=== PATIENT | male | born 1985 | race Caucasian/White ===

== ENCOUNTER 2017-05-04 17:47 | Emergency (ER) | payer OTHER ==
[~2017-05-04] VITALS: Ht 180.3 cm; Wt 110.1 kg
[~2017-05-04 17:47] MED LIST: ACET-1256 PO
[2017-05-04 17:52] VITALS: TEMP 36.3; Ht 180.3 cm; Wt 110.1 kg
[2017-05-04] MEDS ORDERED: VAREPAK PO (18:10)
[2017-05-04 19:10] LABS: BENZODIAZEPINE, URINE NEG (NEG); COCAINE,URINE NEG (NEG); PHENCYCLIDINE, URINE NEG (NEG)
--- NOTE | 2017-05-04 19:28 | EMERGENCY ROOM VISIT NOTE ---
ED Visit Note First contact with patient: 17:58 CHIEF COMPLAINT: "I need a drug test" HISTORY OF PRESENT ILLNESS: This 32-year-old male patient presents to the emergency department in order to get a drug test. The patient states his told him this evening that she thinks he is doing drugs. The patient states that he came home from work today after not having drank any fluids with dry and chapped lips. The patient states his repeatedly asked him this evening if he was on drugs, and finally he got sick of the questioning, so told her he will go to the emergency department to have a drug test. The patient denies any symptoms at this time. The patient denies drug use. REVIEW OF SYSTEMS: A 6-system review of systems was performed with positives and pertinent negatives listed in the history of present illness. All other systems were reviewed and are negative. ALLERGIES: Bactrim MEDICATIONS: albuterol, Chantix PMH: Asthma SOCIAL HISTORY: The patient lives locally with his family. He denies drug or alcohol use. The patient states he quit smoking 2 weeks ago with the help of Chantix. PHYSICAL EXAM: VITALS: Vitals are noted on the nurse's note and reviewed by myself. Vital signs stable. GENERAL: 32-year-old male, in no acute distress, nondiaphoretic, well-developed well-nourished. SKIN: Capillary reflex less than 2 seconds. HEENT: Normocephalic. PERRLA. EOMI. Nares patent. Mucous membranes moist. Neck is supple without nuchal rigidity. HEART: Regular rate and rhythm without murmurs gallops or rubs. LUNGS: Clear to auscultation bilaterally without wheezes, rales or rhonchi. No retractions or accessory muscle use. MUSCULOSKELETAL: No gross musculoskeletal defects. No pedal edema. No calf tenderness. NEURO: Patient was alert and oriented to person place and time. Normal sensation to light and sharp touch. Deep tendon reflexes 2+ throughout. No focal neurological deficits. EMERGENCY DEPARTMENT COURSE: She was seen and evaluated as above. I discussed the patient that insurance may not cover the cost of the drug test in the emergency department. The patient states that fine and he wishes to proceed with the test. Urine test was ordered and was negative for illicit drugs. The patient was discharged home in good condition. DIFFERENTIAL DIAGNOSIS: Drug use, benzodiazepine use DIAGNOSIS: Desire for drug test DISCHARGE INSTRUCTIONS & TREATMENT: You were seen in the emergency department today for for a drug test. Results of your testing were negative. You were given a copy of your drug testing results to take home with you. As discussed, your health insurance may not cover the cost of a drug test in the ED. You should contact your insurance company for any discrepancies or problems related to having this test performed. Please return to the emergency department for actual drug use, drug overdose, trouble breathing, chest pain, or other concerning symptoms. Please follow-up with your PCP in 2-3 days at your regular appointment regarding wheezing noted on exam. Problem List Medical Problems: (1) Asthma Status: Chronic (2) ASTHMA, UNSPECIFIED Status: Chronic (3) right ankle surgery Status: Resolved Surgical Problems: (1) History of appendectomy Status: Resolved Current/Historical Medications Scheduled Varenicline Tartrate (Chantix), 1 TAB PO UD Allergies Coded Allergies: Sulfa Drugs (Verified Allergy, Unknown, 04/02/15) Sulfamethoxazole (Verified Allergy, Unknown, 04/02/15) Sulfamethoxazole w/Trimethoprim (Verified Allergy, Unknown, RASH, 04/02/15) Trimethoprim (Verified Allergy, Unknown, 04/02/15) Vital Signs Date Time Temp Pulse Resp B/P (MAP) Pulse Ox O2 Delivery O2 Flow Rate FiO2 05/04/17 19:38 59 16 145/83 98 05/04/17 17:52 36.3 59 16 145/83 98 Room Air Laboratory Results Test 05/04/17 18:33 Urine Opiates Screen NEG (NEG) Urine Methadone, Qualitative NEG (NEG) Urine Barbiturates NEG (NEG) Urine Phencyclidine (PCP) Level NEG (NEG) Ur Amphetamine/Methamphetamine NEG (NEG) MDMA (Ecstasy) Screen NEG (NEG) Urine Benzodiazepines Screen NEG (NEG) Urine Cocaine Metabolite NEG (NEG) Urine Marijuana (THC) NEG (NEG) Departure Information Impression Primary Impression: Encounter for blood-drug test Dispostion Home / Self-Care Condition GOOD Referrals No Doctor, Assigned (PCP) Patient Instructions MDMA Drug Screen Urine, My [facility] Additional Instructions You were seen in the emergency department today for for a drug test. Results of your testing were negative. You were given a copy of your drug testing results to take home with you. As discussed, your health insurance may not cover the cost of a drug test in the ED. You should contact your insurance company for any discrepancies or problems related to having this test performed. Please return to the emergency department for actual drug use, drug overdose, trouble breathing, chest pain, or other concerning symptoms. Please follow-up with your PCP in 2-3 days at your regular appointment regarding wheezing noted on exam.
[2017-05-04 19:38] VITALS: BP 145/83; PULSE 59; O2SAT 98
== END 2017-05-04 19:38 | disposition home or self-care (01) ==
LOC: C.EDB 17:49 → C.EDD 19:38
DX: Z02.83 Encounter for blood-alcohol and blood-drug test (principal); Z87.891 Personal history of nicotine dependence

== ENCOUNTER 2021-09-26 12:50 | Inpatient (IN) ==
--- NOTE | 2021-09-26 13:17 | Emergency Department Note ---
History of Present Illness General Chief complaint: Shortness of Breath/Dyspnea Stated complaint: COVID + 09/18, SOB, CHEST TIGHTNESS, DIZZY Time Seen by Provider: 09/26/21 13:07 History of Present Illness Maximum Pain Intensity: 0 36-year-old male presents emergency department with a 8-day history of cough cold congestion symptoms, he is unvaccinated, reportedly tested positive for Cov id in the past 8 days. He states that at times he has been coughing clear to green sputum. Patient denies any hemoptysis denies pleuritic chest pain denies nausea vomiting diarrhea. States muscle aches. There are no other mitigating or alleviating factors; States decreased PO intake for the past 3 days due to illness Home Medications Medication Instructions Recorded Confirmed Type meclizine 25 mg tablet 25 mg PO BID PRN #20 tab 09/14/21 09/26/21 Rx albuterol sulfate 90 mcg/actuation 1 inh INHALATION Q6H PRN #6.7 g 09/26/21 09/26/21 Rx aerosol inhaler Allergies Allergy/AdvReac Type Severity Reaction Status Date / Time Bactrim Allergy Unknown RASH Verified 04/02/15 14:59 Sulfa (Sulfonamide Allergy Unknown Verified 09/14/21 11:55 Antibiotics) sulfamethoxazole Allergy Unknown Verified 09/14/21 11:55 trimethoprim Allergy Unknown Verified 09/14/21 11:55 Past Med/Surg History Social History Smoking Status: Never smoker Second Hand Exposure: No; Hx Alcohol Use: Yes Hx Substance Use: Yes Last Used Substance Other:: Many years ago Preferred Language: Citizen Of The [place] Communication Ability: Effective 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 Nursing 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 Required: No Beliefs That Will Affect Care: None marital status: Current Living Situation: Spouse and Family Other Information That Helps Us Care for You: No Feels Safe at Home: Yes Safety Concerns: Feels Safe At This Time Assistive Devices: None Review of Systems A total of 10 systems reviewed and were otherwise negative Constitutional: + body aches Respiratory: + cough and + sputum production Cardiovascular: + lightheadedness Physical Exam Vital Signs Vital Signs - 24 hr 09/26/21 12:56 09/26/21 14:58 09/26/21 15:00 Temperature 37.4 C Temperature Source Temporal Artery Scan Pulse Rate 101 H 90 102 H Pulse Rate [Apical] Pulse Rate from SpO2 Sensor 90 92 H Respiratory Rate 18 18 21 Respiratory Effort / Characteristics Non-Labored Respiratory Depth Normal Respiratory Pattern Blood Pressure 97/67 L Blood Pressure [Right Arm] Blood Pressure Mean 77 Blood Pressure Mean [Right Arm] Pulse Oximetry 94 94 93 Oxygen Delivery Method Room Air Sepsis Recent Fever Within 48 Hours No Sepsis New/Unexplained Change in Mental Status No Sepsis Action Taken by Nursing No Action Required 09/26/21 15:01 09/26/21 15:04 09/26/21 15:10 Temperature Temperature Source Pulse Rate 88 86 Pulse Rate [Apical] 89 Pulse Rate from SpO2 Sensor 91 H Respiratory Rate 22 22 13 Respiratory Effort / Characteristics Non-Labored Respiratory Depth Normal Respiratory Pattern Tachypnea Blood Pressure Blood Pressure [Right Arm] 98/62 L Blood Pressure Mean Blood Pressure Mean [Right Arm] 74 Pulse Oximetry 94 94 91 Oxygen Delivery Method Room Air Room Air Sepsis Recent Fever Within 48 Hours Sepsis New/Unexplained Change in Mental Status Sepsis Action Taken by Nursing 09/26/21 15:20 09/26/21 15:30 09/26/21 15:40 Temperature Temperature Source Pulse Rate 82 83 84 Pulse Rate [Apical] Pulse Rate from SpO2 Sensor 82 83 Respiratory Rate 22 14 19 Respiratory Effort / Characteristics Respiratory Depth Respiratory Pattern Blood Pressure Blood Pressure [Right Arm] Blood Pressure Mean Blood Pressure Mean [Right Arm] Pulse Oximetry 94 96 Oxygen Delivery Method Sepsis Recent Fever Within 48 Hours Sepsis New/Unexplained Change in Mental Status Sepsis Action Taken by Nursing 09/26/21 15:50 09/26/21 16:00 09/26/21 16:10 Temperature Temperature Source Pulse Rate 88 85 87 Pulse Rate [Apical] Pulse Rate from SpO2 Sensor 86 Respiratory Rate 28 H 24 24 Respiratory Effort / Characteristics Respiratory Depth Respiratory Pattern Blood Pressure Blood Pressure [Right Arm] Blood Pressure Mean Blood Pressure Mean [Right Arm] Pulse Oximetry 94 Oxygen Delivery Method Sepsis Recent Fever Within 48 Hours Sepsis New/Unexplained Change in Mental Status Sepsis Action Taken by Nursing 09/26/21 16:20 09/26/21 16:30 09/26/21 16:40 Temperature Temperature Source Pulse Rate 90 89 89 Pulse Rate [Apical] Pulse Rate from SpO2 Sensor 90 Respiratory Rate 11 L 19 25 H Respiratory Effort / Characteristics Respiratory Depth Respiratory Pattern Blood Pressure Blood Pressure [Right Arm] Blood Pressure Mean Blood Pressure Mean [Right Arm] Pulse Oximetry 94 Oxygen Delivery Method Sepsis Recent Fever Within 48 Hours Sepsis New/Unexplained Change in Mental Status Sepsis Action Taken by Nursing 09/26/21 16:50 09/26/21 17:00 09/26/21 17:10 Temperature Temperature Source Pulse Rate 90 87 92 H Pulse Rate [Apical] Pulse Rate from SpO2 Sensor 88 Respiratory Rate 13 21 6 L Respiratory Effort / Characteristics Respiratory Depth Respiratory Pattern Blood Pressure Blood Pressure [Right Arm] Blood Pressure Mean Blood Pressure Mean [Right Arm] Pulse Oximetry 97 Oxygen Delivery Method Sepsis Recent Fever Within 48 Hours Sepsis New/Unexplained Change in Mental Status Sepsis Action Taken by Nursing 09/26/21 17:30 09/26/21 17:40 09/26/21 18:03 Temperature Temperature Source Pulse Rate 87 91 H Pulse Rate [Apical] Pulse Rate from SpO2 Sensor 87 86 Respiratory Rate 22 20 Respiratory Effort / Characteristics Respiratory Depth Respiratory Pattern Blood Pressure Blood Pressure [Right Arm] Blood Pressure Mean Blood Pressure Mean [Right Arm] Pulse Oximetry 94 93 Oxygen Delivery Method Sepsis Recent Fever Within 48 Hours Sepsis New/Unexplained Change in Mental Status Sepsis Action Taken by Nursing 09/26/21 18:10 09/26/21 18:21 09/26/21 18:26 Temperature Temperature Source Pulse Rate Pulse Rate [Apical] 85 Pulse Rate from SpO2 Sensor 85 88 Respiratory Rate 30 H Respiratory Effort / Characteristics Short of Breath Respiratory Depth Respiratory Pattern Tachypnea Blood Pressure Blood Pressure [Right Arm] 101/45 L Blood Pressure Mean Blood Pressure Mean [Right Arm] 63 Pulse Oximetry 92 94 93 Oxygen Delivery Method Room Air Sepsis Recent Fever Within 48 Hours Sepsis New/Unexplained Change in Mental Status Sepsis Action Taken by Nursing 09/26/21 18:30 09/26/21 18:40 09/26/21 18:50 Temperature Temperature Source Pulse Rate Pulse Rate [Apical] Pulse Rate from SpO2 Sensor 84 87 84 Respiratory Rate Respiratory Effort / Characteristics Respiratory Depth Respiratory Pattern Blood Pressure 106/55 L Blood Pressure [Right Arm] Blood Pressure Mean 72 Blood Pressure Mean [Right Arm] Pulse Oximetry 93 94 91 Oxygen Delivery Method Sepsis Recent Fever Within 48 Hours Sepsis New/Unexplained Change in Mental Status Sepsis Action Taken by Nursing 09/26/21 19:00 09/26/21 19:10 09/26/21 19:20 Temperature Temperature Source Pulse Rate Pulse Rate [Apical] Pulse Rate from SpO2 Sensor 84 83 Respiratory Rate Respiratory Effort / Characteristics Respiratory Depth Respiratory Pattern Blood Pressure 115/68 Blood Pressure [Right Arm] Blood Pressure Mean 83 Blood Pressure Mean [Right Arm] Pulse Oximetry 94 94 Oxygen Delivery Method Sepsis Recent Fever Within 48 Hours Sepsis New/Unexplained Change in Mental Status Sepsis Action Taken by Nursing 09/26/21 19:31 Temperature Temperature Source Pulse Rate Pulse Rate [Apical] Pulse Rate from SpO2 Sensor 81 Respiratory Rate Respiratory Effort / Characteristics Respiratory Depth Respiratory Pattern Blood Pressure Blood Pressure [Right Arm] Blood Pressure Mean Blood Pressure Mean [Right Arm] Pulse Oximetry 93 Oxygen Delivery Method Sepsis Recent Fever Within 48 Hours Sepsis New/Unexplained Change in Mental Status Sepsis Action Taken by Nursing VITAL SIGNS - Vital signs and nursing notes were reviewed. GENERAL -no acute distress. Communicates well with provider and answers questions appropriately. SKIN - Without rashes. HEAD - NC/AT. EYES - PERRL with EOMI bilaterally. Sclera anicteric. Palpebral conjunctiva pink and moist with no injection noted. EARS - No deformities of external structures noted on gross examination bilaterally. NOSE - Midline and without cyanosis. No epistaxis or purulent drainage noted. Septum midline without deviation or septal hematoma noted. MOUTH/OROPHARYNX - Without perioral cyanosis. NECK - Neck with FROM. Supple to palpation. LUNGS - Chest wall symmetric without accessory muscle use, intercostals retractions, or central cyanosis. Normal vesicular breath sounds CTA B/L. No wheezes, rales, or rhonchi appreciated. CARDIAC - RRR with S1/S2. No murmur, rubs, or gallops appreciated. ABDOMEN - Abdominal contour flat without pulsations or visible masses. BS normoactive all four quadrants. No tenderness, palpable masses, hepatosplenom egaly, or ascites noted. EXTREMITIES - No clubbing or peripheral cyanosis. . +5/5 strength noted in UE/LE bilaterally. NEUROLOGIC - Cranial nerves II through XII grossly intact. Sensory intact to light touch throughout. Patellar reflexes +2/4. PSYCH - A&Ox3 and cooperates fully with examiner. Pt is very pleasant and interacts well with examiner. Course Course Repeat examination the patient at 1548, patient is resting in no distress he is normotensive not tachycardic not hypoxic Administered Medications Azithromycin (Azithromycin 250 Mg Tab) 250 mg PO [facility] Stop: 10/01/21 08:59 Last Admin: 09/27/21 09:12 Dose: 250 mg Documented by: [id number] Enoxaparin Sodium (Enoxaparin Inj 40 Mg/0.4 Ml Syr) 40 mg SQ QAM BOB Stop: 10/27/21 08:59 Last Admin: 09/27/21 10:15 Dose: Not Given Documented by: [id number] Guaifenesin (Guaifenesin 600 Mg Tabcr) 600 mg PO Q12 BOB Stop: 10/27/21 08:59 Last Admin: 09/27/21 09:41 Dose: 600 mg Documented by: [id number] Ceftriaxone Sodium 2,000 mg/ (Dextrose) 70 mls @ 140 mls/hr IV DAILY BOB; Protocol Stop: 10/04/21 08:59 Last Infusion: 09/27/21 10:15 Dose: 0 mls/hr Documented by: [id number] Admin: 09/27/21 09:45 Dose: 140 mls/hr Documented by: [id number] Senna/Docusate Sodium (Docusate Sodium/Senna 50/8.6mg Tab) 1 tab PO QAM BOB Stop: 10/26/21 22:29 Last Admin: 09/27/21 09:12 Dose: 1 tab Documented by: [id number] Admin: 09/26/21 22:16 Dose: 1 tab Documented by: [id number] Discontinued Medications Albuterol (Albuterol Hfa 8 Gm Inhaler) 2 puffs INH NOW ONE Stop: 09/27/21 06:19 Last Admin: 09/27/21 08:38 Dose: Not Given Documented by: [id number] Dexamethasone (Dexamethasone 4 Mg Tab) 4 mg PO NOW ONE Stop: 09/26/21 13:42 Last Admin: 09/26/21 14:58 Dose: 4 mg Documented by: [id number] Sodium Chloride (Nss) 500 mls @ 999 mls/hr IV .Q31M STA Stop: 09/26/21 15:28 Last Infusion: 09/26/21 16:09 Dose: 0 mls/hr Documented by: [id number] Admin: 09/26/21 15:20 Dose: 999 mls/hr Documented by: [id number] Sodium Chloride (Nss 1000ml) 500 mls @ 999 mls/hr IV .Q31M ONE Stop: 09/26/21 18:56 Last Infusion: 09/26/21 18:57 Dose: 0 mls/hr Documented by: [id number] Admin: 09/26/21 18:25 Dose: 999 mls/hr Documented by: [id number] Azithromycin 500 mg/ Dextrose 255 mls @ 127.5 mls/hr IV NOW STA Stop: 09/26/21 22:13 Last Infusion: 09/26/21 23:13 Dose: 0 mls/hr Documented by: [id number] Admin: 09/26/21 20:41 Dose: 127.5 mls/hr Documented by: [id number] Dexamethasone 6 mg/ Syringe 1.5 mls @ 1 mls/min IV ONE ONE Stop: 09/26/21 20:31 Last Admin: 09/26/21 20:41 Dose: 1 mls/min Documented by: [id number] Sodium Chloride (Nss 1000ml) 1,000 mls @ 100 mls/hr IV .Q10H ONE Stop: 09/27/21 06:03 Last Infusion: 09/27/21 10:26 Dose: 0 mls/hr Documented by: [id number] Infusion: 09/26/21 23:13 Dose: 100 mls/hr Documented by: [id number] Infusion: 09/26/21 21:52 Dose: 0 mls/hr Documented by: [id number] Admin: 09/26/21 20:41 Dose: 100 mls/hr Documented by: [id number] Dexamethasone 6 mg/ Syringe 1.5 mls @ 1 mls/min IV ONE ONE Stop: 09/27/21 06:20 Last Admin: 09/27/21 09:42 Dose: 1 mls/min Documented by: [id number] Ioversol (Optiray 320 125ml) 116 ml IV ONCE ONE Stop: 09/26/21 17:22 Last Admin: 09/26/21 17:27 Dose: 116 ml Documented by: [id number] Polyethylene Glycol (Polyethylene (Miralax) 17 Gm Pack) 17 gm PO NOW STA Stop: 09/26/21 21:56 Last Admin: 09/26/21 22:16 Dose: 17 gm Documented by: [id number] Potassium Chloride (Potassium Chloride Pwd 20 Meq Pack) 40 meq PO NOW STA Stop: 09/27/21 04:39 Last Admin: 09/27/21 05:22 Dose: 40 meq Documented by: [id number] Medical Decision Making Medical Records Attestation: I reviewed the patient's medical records. Home Medications Current Medication List: was personally reviewed by me Laboratory Data Result diagrams: 09/27/21 05:58 09/27/21 06:21 Lab Results 09/26/21 09/26/21 09/26/21 Range/Units 15:22 15:22 15:22 WBC 6.32 (4.8-10.8) K/uL RBC 5.18 (4.7-6.1) M/uL Hgb 16.6 (14.0-18.0) g/dL Hct 48.1 (42-52) % MCV 92.9 (80-100) fL MCH 32.0 (25-34) pg MCHC 34.5 (32-36) g/dL RDW Std Deviation 42.3 (36.4-46.3) fL RDW Coeff of Tong 12.4 (11.5-14.5) % Plt Count 127 L (130-400) K/uL MPV 10.7 H (7.4-10.4) fL Immature Gran % (Auto) 0.3 % Neut % (Auto) 59.7 % Lymph % (Auto) 30.2 % Bee % (Auto) 9.2 % Eos % (Auto) 0.0 % Baso % (Auto) 0.6 % Neut # (Auto) 3.77 (1.4-6.5) K/uL Lymph # (Auto) 1.91 (1.2-3.4) K/uL Bee # (Auto) 0.58 (0.11-0.59) K/uL Eos # (Auto) 0.00 (0-0.5) K/uL Baso # (Auto) 0.04 (0-0.2) K/uL Immature Gran # (Auto) 0.02 (0.00-0.02) K/uL PT 10.1 (9.0-12.0) Seconds INR 1.0 (0.9-1.1) D-Dimer 960 H* (0-500) ug/L FEU Sodium 133 L (136-145) mmol/L Potassium (3.5-5.1) mmol/L Chloride 102 (98-107) mmol/L Carbon Dioxide 24 (21-32) mmol/L Anion Gap 7.0 (3-11) BUN 10 (7-18) mg/dl Creatinine 0.87 (0.6-1.4) mg/dl Est Cr Clr Drug Dosing 163.8 ml/min Est GFR ( Amer) 130.5 ml/min Est GFR (Non-Af Amer) 112.6 ml/min BUN/Creatinine Ratio 11.7 (10-20) Glucose 87 (70-99) mg/dl Calcium 8.6 (8.5-10.1) mg/dl Magnesium (1.8-2.4) mg/dl Total Bilirubin 0.6 (0.2-1) mg/dl AST (15-37) U/L ALT 121 H (12-78) Alkaline Phosphatase 67 (45-117) U/L Troponin I < 0.015 (0-0.045) ng/ml Total Protein 7.4 (6.4-8.2) gm/dl Albumin 3.0 L (3.4-5.0) gm/dl Globulin 4.4 H (2.5-4.0) gm/dl Albumin/Globulin Ratio 0.7 L (0.9-2) Lipase 140 (73-393) U/L SARS-CoV-2 (PCR) (Negative) Influenza Type A (PCR) (Neg) Influenza Type B (PCR) (Neg) RSV (RT-PCR) (Neg) 09/26/21 Range/Units 18:30 WBC (4.8-10.8) K/uL RBC (4.7-6.1) M/uL Hgb (14.0-18.0) g/dL Hct (42-52) % MCV (80-100) fL MCH (25-34) pg MCHC (32-36) g/dL RDW Std Deviation (36.4-46.3) fL RDW Coeff of Tong (11.5-14.5) % Plt Count (130-400) K/uL MPV (7.4-10.4) fL Immature Gran % (Auto) % Neut % (Auto) % Lymph % (Auto) % Bee % (Auto) % Eos % (Auto) % Baso % (Auto) % Neut # (Auto) (1.4-6.5) K/uL Lymph # (Auto) (1.2-3.4) K/uL Bee # (Auto) (0.11-0.59) K/uL Eos # (Auto) (0-0.5) K/uL Baso # (Auto) (0-0.2) K/uL Immature Gran # (Auto) (0.00-0.02) K/uL PT (9.0-12.0) Seconds INR (0.9-1.1) D-Dimer (0-500) ug/L FEU Sodium (136-145) mmol/L Potassium (3.5-5.1) mmol/L Chloride (98-107) mmol/L Carbon Dioxide (21-32) mmol/L Anion Gap (3-11) BUN (7-18) mg/dl Creatinine (0.6-1.4) mg/dl Est Cr Clr Drug Dosing ml/min Est GFR ( Amer) ml/min Est GFR (Non-Af Amer) ml/min BUN/Creatinine Ratio (10-20) Glucose (70-99) mg/dl Calcium (8.5-10.1) mg/dl Magnesium (1.8-2.4) mg/dl Total Bilirubin (0.2-1) mg/dl AST (15-37) U/L ALT (12-78) Alkaline Phosphatase (45-117) U/L Troponin I (0-0.045) ng/ml Total Protein (6.4-8.2) gm/dl Albumin (3.4-5.0) gm/dl Globulin (2.5-4.0) gm/dl Albumin/Globulin Ratio (0.9-2) Lipase (73-393) U/L SARS-CoV-2 (PCR) POSITIVE A* (Negative) Influenza Type A (PCR) Negative (Neg) Influenza Type B (PCR) Negative (Neg) RSV (RT-PCR) Negative (Neg) Imaging Data Radiologist's Impression: Chest X-Ray 09/26/21 14:07 XR chest 2V PA/lateral CLINICAL HISTORY: cough, covid positive TECHNIQUE: AP and lateral frontal radiograph of the chest was obtained. Comparison: Comparison is made to chest one view 09/20/2021 FINDINGS: No lines and tubes are seen. The cardiomediastinal silhouette is normal. Bilateral lower lung predominant airspace opacities are seen. No evidence of pleural effusion or pneumothorax. IMPRESSION: Bilateral lower lung predominant airspace opacities which may represent atelectasis, pneumonia, and/or aspiration. ACT 112: Negative or not required by law. Electronically signed by: Marty Macedo M.D. 09/26/2021 2:36 PM ECG Data Attestation: I personally reviewed and interpreted this ECG as follows: Additional Comments: EKG interpreted by me normal sinus rhythm rate of 81 normal intervals normal axis no ischemic changes no ST segment elevation or depression MDM Narrative Medical decision making differential diagnosis includes Covid pneumonia, upper respiratory tract infection, bronchitis, pneumonia; plan is to check a chest x- ray; patient's chest x-ray is consistent with Covid pneumonia, patient was being set for discharge when the nurse repeated his blood pressure was 87/40, the patient stated that he had increased shortness of breath when he was upright but was better when he was prone. On my repeat examination his heart rate is 83 his pulse oximetry is 97% he is in no respiratory distress his BP is 109/77 continues to state that he is short of breath. Patient also states he has had decreased p.o. intake in the past few days he was moved to bed B6, I will check labs and give the patient IV fluids; patient on repeat examination is resting in no distress is not hypoxic not tachycardic and not hypotensive; patient has an elevated D-dimer, CT angio was ordered. The case was turned over to DR Shaw at [address] results and disposition; Impression & Plan COVID-19, Pneumonia due to 2019 novel coronavirus Discharge Plan Visit Data Chief Complaint: Shortness of Breath/Dyspnea Stated Complaint: COVID + 12/13, SOB, CHEST TIGHTNESS, DIZZY ED Provider: Ehsan Shaw Discharge Problem: COVID-19, Pneumonia due to 2019 novel coronavirus Patient Disposition: Admitted As Inpatient Discharge Instructions Interventions: ED Discharge Assessment Last Done: 09/26/21 21:14 COVID Tier Tier I: No follow up necessary. Covid Fact Sheet / ED Discharge Instructions only Tier II: Self-Monitoring Kit, Temp 2x day/pulse ox q8 hrs. Followup call in 24 hrs. Tier III: Self-Monitoring Kit, Temp 2x day/pulse ox q4 hours, with Home Oxygen, Followup call @ 8 & 24hrs. Telehealth Followup in 48hrs ED COVID Discharge Tier: Tier II: Stable for D/C. Given a Self-Mon Kit. Call Back within 24hrs
[2021-09-26] MEDS ORDERED: dexAMETHasone 4 MG TAB PO ONE (13:41)
--- NOTE | 2021-09-26 14:38 | XRay Report ---
XR chest 2V PA/lateral CLINICAL HISTORY: cough, covid positive TECHNIQUE: AP and lateral frontal radiograph of the chest was obtained. Comparison: Comparison is made to chest one view 09/20/2021 FINDINGS: No lines and tubes are seen. The cardiomediastinal silhouette is normal. Bilateral lower lung predomi nant airspace opacities are seen. No evidence of pleural effusion or pneumothorax. IMPRESSION: Bilateral lower lung predominant airspace opacities which may represent atelectasis, pneumonia, and/o r aspiration. ACT 112: Negative or not required by law. Electronically signed by: Marty Macedo M.D. 09/26/2021 2:36 PM
[2021-09-26] MEDS ORDERED: SODIUM CHLORIDE 0.9% 500 ML IV STA (14:58)
[2021-09-26 15:33] LABS: Basophils # (auto) 0.04 K/uL (0-0.2); Basophils % (auto) 0.6 %; Hematocrit (blood only) 48.1 % (42-52); Hemoglobin 16.6 g/dL (14.0-18.0); Immature Granulocytes # (auto) 0.02 K/uL (0.00-0.02); Immature Granulocytes % (auto) 0.3 %; Lymphocytes # (auto) 1.91 K/uL (1.2-3.4); Lymphocytes % (auto) 30.2 %; Mean Corpuscular Hgb Conc 34.5 g/dL (32-36); Mean Corpuscular Volume 92.9 fL (80-100); Mean Platelet Volume 10.7 fL (7.4-10.4); Monocytes # (auto) 0.58 K/uL (0.11-0.59); Monocytes % (auto) 9.2 %; Neutrophils # (auto) 3.77 K/uL (1.4-6.5); Neutrophils % (auto) 59.7 %; Platelet Count 127 K/uL (130-400); RDW Coefficient of Variation 12.4 % (11.5-14.5); RDW Standard Deviation 42.3 fL (36.4-46.3); Red Blood Count 5.18 M/uL (4.7-6.1); White Blood Count 6.32 K/uL (4.8-10.8)
[2021-09-26 15:43] LABS: Prothrombin Time 10.1 Seconds (9.0-12.0)
[2021-09-26 15:52] LABS: D Dimer 960 ug/L FEU (0-500)
[2021-09-26 16:14] LABS: Alanine Aminotransferase 121 (12-78); Albumin Globulin Ratio 0.7 (0.9-2); Alkaline Phosphatase 67 U/L (45-117); BUN Creatinine Ratio 11.7 (10-20); Bilirubin,Total 0.6 mg/dl (0.2-1); Blood Urea Nitrogen 10 mg/dl (7-18); Calcium 8.6 mg/dl (8.5-10.1); Carbon Dioxide 24 mmol/L (21-32); Chloride 102 mmol/L (98-107); Creatinine Clr Calc Pharmacy 163.8 ml/min; Est GFR (African American) 130.5 ml/min; Est GFR (Non-African American) 112.6 ml/min; Globulin 4.4 gm/dl (2.5-4.0); Glucose 87 mg/dl (70-99); Lipase 140 U/L (73-393); Sodium 133 mmol/L (136-145); Total Protein 7.4 gm/dl (6.4-8.2); Troponin I < 0.015 ng/ml (0-0.045)
[2021-09-26] MEDS ORDERED: OPTIRAY 320 125ml IV ONE (17:21)
--- NOTE | 2021-09-26 17:58 | CT Scan Report ---
CT ANGIOGRAPHY OF THE CHEST, PULMONARY EMBOLUS PROTOCOL CLINICAL HISTORY: Shortness of breath. Evaluate for pulmonary embolus. COMPARISON STUDY: Chest radiograph September 20, 2021 and September 26, 2021. TECHNIQUE: Following IV administration of 116 mL of Optiray, helical axial images of the chest were o btained utilizing the pulmonary embolus protocol. Maximal intensity projections and sagittal and cor onal reformats were viewed on an independent 3D workstation. IV contrast was administered without co mplication. Automated exposure control was utilized for the study. A dose lowering technique was ut ilized adhering to the principles of ALARA. CT DOSE: 532.04 mGycm FINDINGS: This exam is significantly compromised by suboptimal opacification. No pulmonary emboli ar e identified although sensitivity is significantly diminished on this exam. There is no thoracic aort ic dissection. Size of the heart is normal. There is no pericardial effusion. Mildly enlarged mediast inal and bilateral hilar lymph nodes are noted. Index subcarinal lymph node measures 1.4 cm short axi s diameter. Central airways are patent. No pneumothorax or pleural effusion is noted. Extensive bilat eral lower lobe predominant airspace opacities are noted. No acute fracture or suspicious lesion is i dentified within visualized portions of the bony thorax. There is possible hepatic steatosis. IMPRESSION: 1. Exam significantly compromised by suboptimal opacification. No pulmonary emboli identified althoug h sensitivity significantly diminished on this exam. A repeat PE protocol CT might be considered. 2. Extensive multifocal airspace opacities within the lower lungs consistent with viral pneumonia. 3. Mildly enlarged mediastinal and bilateral hilar lymph nodes which are likely reactive. ACT 112: Negative or not required by law. Electronically signed by: Kurtis Cohen M.D. 09/26/2021 5:57 PM
[2021-09-26] MEDS ORDERED: SODIUM CHLORIDE 0.9% 1000ML 500 ML IV ONE (18:26)
--- NOTE | 2021-09-26 18:44 | Emergency Department Note ---
ED Visit Note I received this patient at change of shift signout from Dr. Albert. Please see his note for initial history and physical exam. The patient is a 36-year-old male who presented to the emergency department with shortness of breath. The patient is normally in a good state of health. He started having symptoms approximately 11 days ago. He was found to be positive for COVID-19 as an outpatient. He noticed that especially over the last few days his breathing has become much more labored. He was found to have Covid pneumonia on chest x-ray but because of the degree of breathing difficulty CT of the chest was also ordered. I discussed the patient's laboratory and radiographic studies with him. The CT of the chest did not show a definite pulmonary embolism but it did show extensive infiltrate secondary to COVID-19. Because of the patient's ongoing symptoms I discussed the possibility of inpatient management with him. He was agreeable this plan. I discussed his case with the on-call [facility] hospitalist group. They will evaluate the patient in the emergency department for further management and disposition. .
[2021-09-26 19:35] LABS: Influenza A virus by PCR Negative (Neg); Influenza B virus by PCR Negative (Neg); RSV by PCR Negative (Neg)
[2021-09-26 19:41] LABS: SARS CoV2 RNA(COVID-19) InHosp POSITIVE (Negative)
--- NOTE | 2021-09-26 20:00 | History & Physical Report ---
Date of Service September 26, 2021 Assessment & Plan (1) Pneumonia due to severe acute respiratory syndrome coronavirus 2 (S ARS-CoV-2): Plan: O2 sats less than 94% at the ER Superimposed bacterial infection No sepsis for now Recurrent syncopal events likely secondary to orthostasis given hypotension upon arrival at the ER. Rule out cardiac dysfunction past tobacco abuse Medical telemetry Decadron course for severe COVID-19 pneumonia Azithromycin IVF TTE RE recurrent syncope DVT prophylaxis. Lovenox subcu Full code Text document was generated using [employer] voice recognition software. It may contain grammatical or spelling errors. Kindly contact undersigned for clarification of any documentation item in question. History of Present Illness Chief Complaint: Feeling worse, Covid Primary Care Provider: Dr. Meeks History obtained from patient and records. Medical history significant for asthma, GERD, past tobacco abuse. 2 weeks ago, patient noted dizziness, lightheadedness symptoms at work. No chest pain, no S OB. Patient discharged from the ER after unremarkable work-up. Patient prescribed meclizine for possible vertigo. Patient seen at PCPs office 10 days ago on follow-up visit Patient recalled 2 unwitnessed syncopal events prior to ER visit a few days ago. Patient with fever, nausea, cough symptoms at time of PCP visit. Possible sick COVID-19 family contacts. Patient has not received COVID-19 vaccination. COVID-19 test done at PCPs office was positive. Recurrent syncopal events at home prompted return to ER last week. No incontinence, or weakness seizure episodes, or tongue biting. Poor appetite. Patient discharged from ER with negative work-up. Worsening cough symptoms with shortness of breath. Patient coughing up green sputum. Pleuritic chest pain. No wheezing as per patient. Patient returned to ER for evaluation. Initial SBP at the ER 90s. Lowest O2 sats at the ER 91 on room air. Oral Decadron given at the ER. 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 Allergies Allergy/AdvReac Type Severity Reaction Status Date / Time Bactrim Allergy Unknown RASH Verified 04/02/15 14:59 Sulfa (Sulfonamide Allergy Unknown Verified 09/14/21 11:55 Antibiotics) sulfamethoxazole Allergy Unknown Verified 09/14/21 11:55 trimethoprim Allergy Unknown Verified 09/14/21 11:55 Home Medications Medication Instructions Recorded Confirmed Type meclizine 25 mg tablet 25 mg PO BID PRN #20 tab 09/14/21 09/26/21 Rx albuterol sulfate 90 mcg/actuation 1 inh INHALATION Q6H PRN #6.7 g 09/26/21 09/26/21 Rx aerosol inhaler Past Med/Surg History Social History Smoking Status: Never smoker Second Hand Exposure: No; Hx Alcohol Use: Yes Hx Substance Use: Yes Last Used Substance Other:: Many years ago Preferred Language: Bulgarian Communication Ability: Effective Neighborhood Planner Required: No Beliefs That Will Affect Care: None Current Living Situation: Spouse and Family Other Information That Helps Us Care for You: No Feels Safe at Home: Yes Safety Concerns: Feels Safe At This Time Assistive Devices: None Review of Systems Review of Systems: As per HPI, all 10 systems reviewed, all other ROS negative Physical Exam Physical Exam: GENERAL: Uncomfortable, obese, lying semiprone on the right lateral decubitus position, minimal respiratory distress SKIN: Normal color, warm HEENT: [place] palpebral conjunctivae, no ptosis, dry buccal mucosa NECK : Supple, short neck, no tenderness CHEST : Decreased breath sounds, no tenderness HEART : RRR, no obvious murmurs ABDOMEN: Some distention, nontender EXTREMITIES : No LE swelling/tenderness, no other conspicuous deformities noted NEUROLOGIC : Coherent, no facial asymmetry, no other gross focality Results & Data Results & Data ([facility]) Vital Signs (Past 12 Hours) Vital Signs Temp Pulse Pulse Resp BP BP Pulse Ox 09/26/21 18:26 85 30 H 101/45 L 93 09/26/21 15:04 88 22 94 09/26/21 15:01 89 22 98/62 L 94 09/26/21 12:56 37.4 C 101 H 18 97/67 L 94 Laboratory Results Laboratory Results WBC 6.32 K/uL (4.8-10.8) 09/26/21 15:22 RBC 5.18 M/uL (4.7-6.1) 09/26/21 15:22 Hgb 16.6 g/dL (14.0-18.0) 09/26/21 15:22 Hct 48.1 % (42-52) 09/26/21 15: MCV 92.9 fL (80-100) 09/26/21 15: MCH 32.0 pg (25-34) 09/26/21 15: MCHC 34.5 g/dL (32-36) 09/26/21 15: RDW Std Deviation 42.3 fL (36.4-46.3) 09/26/21 15: RDW Coeff of Tong 12.4 % (11.5-14.5) 09/26/21 15: Plt Count 127 K/uL (130-400) L 09/26/21 15: MPV 10.7 fL (7.4-10.4) H 09/26/21 15: Immature Gran % (Auto) 0.3 % 09/26/21 15: Neut % (Auto) 59.7 % 09/26/21: Lymph % (Auto) 30.2 % 09/26/21 15: [place] % (Auto) 9.2 % 09/26/21 15: Eos % (Auto) 0.0 % 09/26/21 15: Baso % (Auto) 0.6 % 09/26/21: Neut # (Auto) 3.77 K/uL (1.4-6.5) 09/26/21: Lymph # (Auto) 1.91 K/uL (1.2-3.4) 09/26/21: [place] # (Auto) 0.58 K/uL (0.11-0.59) 09/26/21 15: Eos # (Auto) 0.00 K/uL (0-0.5) 09/26/21 15: Baso # (Auto) 0.04 K/uL (0-0.2) 09/26/21: Immature Gran # (Auto) 0.02 K/uL (0.00-0.02) 09/26/21 15: PT 10.1 Seconds (9.0-12.0) 09/26/21 15: INR 1.0 (0.9-1.1) 09/26/21 15: D-Dimer 960 ug/L FEU (0-500) H* 09/26/21 15:22 Sodium 133 mmol/L (136-145) L 09/26/21 15:22 Potassium mmol/L (3.5-5.1) 09/26/21 15:22 Chloride 102 mmol/L (98-107) 09/26/21 15:22 Carbon Dioxide 24 mmol/L (21-32) 09/26/21 15:22 Anion Gap 7.0 (3-11) 09/26/21 15:22 BUN 10 mg/dl (7-18) 09/26/21 15:22 Creatinine 0.87 mg/dl (0.6-1.4) 09/26/21 15:22 Est Cr Clr Drug Dosing 163.8 ml/min 09/26/21 15:22 Est GFR ( Amer) 130.5 ml/min 09/26/21 15:22 Est GFR (Non-Af Amer) 112.6 ml/min 09/26/21 15:22 BUN/Creatinine Ratio 11.7 (10-20) 09/26/21 15:22 Glucose 87 mg/dl (70-99) 09/26/21 15:22 Calcium 8.6 mg/dl (8.5-10.1) 09/26/21 15:22 Magnesium mg/dl (1.8-2.4) 09/26/21 15:22 Total Bilirubin 0.6 mg/dl (0.2-1) 09/26/21 15:22 AST U/L (15-37) 09/26/21 15:22 ALT 121 (12-78) H 09/26/21 15:22 Alkaline Phosphatase 67 U/L (45-117) 09/26/21 15:22 Troponin I < 0.015 ng/ml (0-0.045) 09/26/21 15:22 Total Protein 7.4 gm/dl (6.4-8.2) 09/26/21 15:22 Albumin 3.0 gm/dl (3.4-5.0) L 09/26/21 15:22 Globulin 4.4 gm/dl (2.5-4.0) H 09/26/21 15:22 Albumin/Globulin Ratio 0.7 (0.9-2) L 09/26/21 15:22 Lipase 140 U/L (73-393) 09/26/21 15:22 SARS-CoV-2 (PCR) POSITIVE (Negative) A* 09/26/21 18:30 Influenza Type A (PCR) Negative (Neg) 09/26/21 18:30 Influenza Type B (PCR) Negative (Neg) 09/26/21 18:30 RSV (RT-PCR) Negative (Neg) 09/26/21 18:30 Impressions Chest X-Ray 09/26/21 14:07 XR chest 2V PA/lateral CLINICAL HISTORY: cough, covid positive TECHNIQUE: AP and lateral frontal radiograph of the chest was obtained. Comparison: Comparison is made to chest one view 09/20/2021 FINDINGS: No lines and tubes are seen. The cardiomediastinal silhouette is normal. Bilateral lower lung predominant airspace opacities are seen. No evidence of pleural effusion or pneumothorax. IMPRESSION: Bilateral lower lung predominant airspace opacities which may represent atelectasis, pneumonia, and/or aspiration. ACT 112: Negative or not required by law. Electronically signed by: Marty Macedo M.D. 09/26/2021 2:36 PM Chest CTA 09/26/21 15:53 CT ANGIOGRAPHY OF THE CHEST, PULMONARY EMBOLUS PROTOCOL CLINICAL HISTORY: Shortness of breath. Evaluate for pulmonary embolus. COMPARISON STUDY: Chest radiograph September 20, 2021 and September 26, 2021. TECHNIQUE: Following IV administration of 116 mL of Optiray, helical axial images of the chest were obtained utilizing the pulmonary embolus protocol. Maximal intensity projections and sagittal and coronal reformats were viewed on an independent 3D workstation. IV contrast was administered without complication. Automated exposure control was utilized for the study. A dose lowering technique was utilized adhering to the principles of ALARA. CT DOSE: 532.04 mGycm FINDINGS: This exam is significantly compromised by suboptimal opacification. No pulmonary emboli are identified although sensitivity is significantly diminished on this exam. There is no thoracic aortic dissection. Size of the heart is normal. There is no pericardial effusion. Mildly enlarged mediastinal and bilateral hilar lymph nodes are noted. Index subcarinal lymph node measures 1.4 cm short axis diameter. Central airways are patent. No pneumothorax or pleural effusion is noted. Extensive bilateral lower lobe predominant airspace opacities are noted. No acute fracture or suspicious lesion is identified within visualized portions of the bony thorax. There is possible hepatic steatosis. IMPRESSION: 1. Exam significantly compromised by suboptimal opacification. No pulmonary emboli identified although sensitivity significantly diminished on this exam. A repeat PE protocol CT might be considered. 2. Extensive multifocal airspace opacities within the lower lungs consistent with viral pneumonia. 3. Mildly enlarged mediastinal and bilateral hilar lymph nodes which are likely reactive. ACT 112: Negative or not required by law. Electronically signed by: Kurtis Cohen M.D. 09/26/2021 5:57 PM Diagnostic Findings EKG as per my interpretation rate 80, NSR, normal axis, no ischemia, QTC 430
[2021-09-26] MEDS ORDERED: SODIUM CHLORIDE 0.9% 1000ML 1,000 ML IV ONE (20:04)
[2021-09-26] MEDS ORDERED: AZITHROMYCIN 500 MG in DEXTROSE 5% 250 ML IV STA (20:14)
[2021-09-26] MEDS ORDERED: dexAMETHasone 6 MG in SYRINGE 0 ML IV ONE (20:30)
[2021-09-26 21:00] LABS: Potassium 3.8 mmol/L (3.5-5.1)
[2021-09-26 21:15] LABS: Thyroid Stimulating Hormone 0.652 uIu/ml (0.300-4.500)
[2021-09-26] MEDS ORDERED: ACETAMINOPHEN 325 MG TAB PO PRN (21:51)
[2021-09-26] MEDS ORDERED: PROMETHAZINE HCL 12.5 MG in SODIUM CHLORIDE 0.9% 50 ML IV PRN (21:51)
[2021-09-26] MEDS ORDERED: POLYETHYLENE (MIRALAX) 17 GM PACK PO STA (21:55)
[2021-09-26] MEDS ORDERED: POLYETHYLENE (MIRALAX) 17 GM PACK PO PRN (21:55)
[2021-09-26] MEDS: DOCUSATE SODIUM/SENNA 50/8.6MG TAB PO SCH (22:16)
[2021-09-27] MEDS ORDERED: POTASSIUM CHLORIDE PWD 20 MEQ PACK PO STA (04:38)
[2021-09-27] MEDS ORDERED: ALBUTEROL HFA 8 GM INHALER INH ONE (06:18)
[2021-09-27] MEDS ORDERED: dexAMETHasone 6 MG in SYRINGE 0 ML IV ONE (06:19)
[2021-09-27 06:40] LABS: Basophils # (auto) 0.01 K/uL (0-0.2); Basophils % (auto) 0.3 %; Hematocrit (blood only) 46.1 % (42-52); Hemoglobin 15.9 g/dL (14.0-18.0); Immature Granulocytes # (auto) 0.02 K/uL (0.00-0.02); Immature Granulocytes % (auto) 0.6 %; Lymphocytes # (auto) 1.37 K/uL (1.2-3.4); Lymphocytes % (auto) 42.8 %; Mean Corpuscular Hemoglobin 31.8 pg (25-34); Mean Corpuscular Hgb Conc 34.5 g/dL (32-36); Mean Corpuscular Volume 92.2 fL (80-100); Mean Platelet Volume 10.9 fL (7.4-10.4); Monocytes # (auto) 0.38 K/uL (0.11-0.59); Monocytes % (auto) 11.9 %; Neutrophils # (auto) 1.42 K/uL (1.4-6.5); Neutrophils % (auto) 44.4 %; Platelet Count 142 K/uL (130-400); RDW Coefficient of Variation 12.4 % (11.5-14.5); RDW Standard Deviation 41.9 fL (36.4-46.3)
[2021-09-27 06:50] LABS: Base Excess ABG -1.3 mEq/L (-9-1.8); HCO3 ABG 21 mmol/L (19-24); Oxygen Saturation ABG 94.8 % (90-95); PCO2 ABG 28 mmHg (35-46); PO2 ABG 66 mmHg (80-95); pH ABG 7.48 (7.35-7.45)
[2021-09-27 07:05] LABS: Allen Test Pos (Pos)
[2021-09-27 07:21] LABS: Albumin Level 2.8 gm/dl (3.4-5.0); BUN Creatinine Ratio 12.5 (10-20); Calcium 8.7 mg/dl (8.5-10.1); Creatinine Clr Calc Pharmacy 212.9 ml/min; Est GFR (African American) 146.2 ml/min; Est GFR (Non-African American) 126.1 ml/min; Magnesium 2.2 mg/dl (1.8-2.4); Potassium 4.3 mmol/L (3.5-5.1)
[2021-09-27 07:24] LABS: Albumin Globulin Ratio 0.7 (0.9-2); Bilirubin,Total 0.4 mg/dl (0.2-1); C Reactive Protein 3.7 mg/dl (0-0.29); Globulin 4.1 gm/dl (2.5-4.0); Total Protein 6.9 gm/dl (6.4-8.2)
--- NOTE | 2021-09-27 07:53 | XRay Report ---
XR chest 1V portable CLINICAL HISTORY: LOW O2 TECHNIQUE: Single frontal radiograph of the chest was obtained. Comparison: Comparison is made to chest 2 views 09/26/2021 FINDINGS: No lines and tubes are seen. The cardiomediastinal silhouette is normal. Multifocal airspace opacitie s are seen. No evidence of pleural effusion or pneumothorax. IMPRESSION: Multifocal airspace opacities, similar to minimally improved from prior exam. ACT 112: Negative or not required by law. Electronically signed by: Marty Macedo M.D. 09/27/2021 7:52 AM
[2021-09-27] MEDS ORDERED: LEVALBUTEROL TARTRATE 15 GM HFA.AER.AD INH PRN (08:56)
[2021-09-27] MEDS ORDERED: dexAMETHasone 6 MG in SYRINGE 0 ML IV SCH (09:00)
[2021-09-27] MEDS ORDERED: LEVALBUTEROL TARTRATE 15 GM HFA.AER.AD INH SCH (09:00)
[2021-09-27] MEDS: ENOXAPARIN INJ 40 MG/0.4 ML SYR SQ SCH ×2 (09:11→10:15)
[2021-09-27] MEDS: AZITHROMYCIN 250 MG TAB PO SCH (09:12)
[2021-09-27] MEDS: DOCUSATE SODIUM/SENNA 50/8.6MG TAB PO SCH (09:12)
[2021-09-27] MEDS: guaiFENesin 600 MG TABCR PO SCH ×2 (09:41→21:41)
[2021-09-27] MEDS: cefTRIAXone SODIUM 2,000 MG in DEXTROSE 5% 50 ML IV SCH (09:45)
--- NOTE | 2021-09-27 19:40 | Hospitalist Progress Note ---
Date of Service September 27, 2021 delayed entry date of service noted above Assessment & Plan (1) Pneumonia due to severe acute respiratory syndrome coronavirus 2 (SARS-CoV-2): Plan: COVID-19 pneumonia with acute hypoxic respiratory failure Possible secondary bacterial pneumonia O2 sats less than 94% at the ER Superimposed bacterial infection --Continue Decadron Patient agreeable to start remdesivir therapy, risks and benefits discussed in detail, patient verbalized understanding and agreement Self proning, incentive spirometry, flutter valve encouraged Lovenox for DVT prophylaxis --Continue ceftriaxone plus azithromycin Follow-up blood cultures Recurrent syncopal events likely secondary to orthostasis given hypotension upon arrival at the ER. --Gentle IV fluids --No arrhythmia per telemetry monitoring past tobacco abuse DVT prophylaxis. Lovenox subcu Full code plan of care discussed with patient in detail and at length all questions answered he is understanding, agreeable, comfortable with the plan of care Admission and Anticipated Discharge Date Admission Date: September 26, 2021 Subjective Follow-up for COVID-19 pneumonia, acute hypoxic respiratory failure, etc. Seen sitting up in bed, not in distress, on 3 days of oxygen via nasal cannula States breathing is slightly improving No chest pain, palpitations, dizziness Has occasional cough, no phlegm No abdominal pain, nausea vomiting, diarrhea No leg pain Patient dyspneic on minimal exertion No other symptoms Review of Systems Review of Systems: all noted and negative except for above Physical Exam Physical Exam: General- oriented x 3, not in distress, speaks in sentences with no effort or accessory muscle use Head- atraumatic Eyes- PERRL, EOMI, anicteric ENT- oropharynx clear Neck- supple, no JVD, no adenopathy, no thyromegaly; carotids +2/2, no bruits appreciated Lungs-positive bibasilar crackles, no wheezing Good air entry bilaterally Heart- normal rate, regular rhythm; no murmur, no gallop, no rub appreciated Abdomen- normal bowel sounds, nondistended, soft, nontender, no masses or hepatosplenomegaly Extremities- no pretibial edema, no calf tenderness; peripheral pulses intact Neuro- alert, oriented x 3; CN 2-12 grossly intact; motor 5/5 bilaterally;sensation 100% on all extremities; no other gross focal neurologic deficits Skin- warm & dry Results & Data Results & Data ([facility]) Vital Signs (Past 12 Hours) Vital Signs Temp Pulse Pulse Resp BP BP Pulse Ox 09/27/21 15:43 36.7 C 60 19 98/60 L 95 09/27/21 14:20 65 09/27/21 11:20 36.7 C 60 19 110/71 92 09/27/21 07:57 36.7 C 62 18 123/82 92 all noted and reviewed including below
[2021-09-27] MEDS ORDERED: REMDESIVIR 200 MG in SODIUM CHLORIDE 0.9% 210 ML IV ONE (20:00)
[2021-09-27] MEDS: SODIUM CHLORIDE 0.9% 1000ML 1,000 ML IV SCH (21:38)
[2021-09-27] MEDS: SODIUM CHLORIDE 0.9% 10ML FLUSH IV SCH (21:38)
[2021-09-27] MEDS ORDERED: SODIUM CHLORIDE 0.9% 10ML FLUSH IV SCH (22:00)
[2021-09-28] MEDS ORDERED: ALBUT/IPRATROP 3MG/0.5MG NEB 3 ML VIAL ONE (00:34)
[2021-09-28] MEDS: ALBUT/IPRATROP 3MG/0.5MG NEB 3 ML VIAL NEB PRN ×2 (00:44→07:35)
[2021-09-28 06:25] LABS: Hematocrit (blood only) 47.5 % (42-52); Hemoglobin 15.9 g/dL (14.0-18.0); Mean Corpuscular Hemoglobin 31.6 pg (25-34); Mean Corpuscular Hgb Conc 33.5 g/dL (32-36); Mean Corpuscular Volume 94.4 fL (80-100); Mean Platelet Volume 10.9 fL (7.4-10.4); Platelet Count 171 K/uL (130-400); RDW Coefficient of Variation 12.7 % (11.5-14.5); Red Blood Count 5.03 M/uL (4.7-6.1); White Blood Count 10.54 K/uL (4.8-10.8)
--- NOTE | 2021-09-28 06:43 | Electrocardiogram Report ---
Test Reason : Blood Pressure : / mmHG Vent. Rate : 081 BPM Atrial Rate : 081 BPM P-R Int : 146 ms QRS Dur : 082 ms QT Int : 366 ms P-R-T Axes : 039 061 047 degrees QTc Int : 425 ms Normal sinus rhythm Normal ECG When compared with ECG of 20-SEP-2021 16:21, No significant change was found Confirmed by Noel Wu ([id number]) on 09/28/2021 6:43:35 AM Referred By: REFERRED SELF Confirmed By:Noel Wu
[2021-09-28 06:52] LABS: Basophils # (auto) 0.06 K/uL (0-0.2); Basophils % (auto) 0.6 %; Eosinophils # (auto) 0.01 K/uL (0-0.5); Eosinophils % (auto) 0.1 %; Immature Granulocytes # (auto) 0.04 K/uL (0.00-0.02); Immature Granulocytes % (auto) 0.4 %; Lymphocytes # (auto) 2.74 K/uL (1.2-3.4); Monocytes # (auto) 1.33 K/uL (0.11-0.59); Monocytes % (auto) 12.6 %; Neutrophils # (auto) 6.36 K/uL (1.4-6.5); Neutrophils % (auto) 60.3 %
[2021-09-28 07:10] LABS: Albumin Globulin Ratio 0.7 (0.9-2); Albumin Level 2.8 gm/dl (3.4-5.0); BUN Creatinine Ratio 13.8 (10-20); Bilirubin,Total 0.3 mg/dl (0.2-1); Calcium 8.8 mg/dl (8.5-10.1); Creatinine Clr Calc Pharmacy 189.9 ml/min; Est GFR (African American) 139.5 ml/min; Est GFR (Non-African American) 120.3 ml/min; Potassium 4.2 mmol/L (3.5-5.1); Total Protein 6.8 gm/dl (6.4-8.2)
[2021-09-28 07:31] LABS: C Reactive Protein 1.14 mg/dl (0-0.29); Ferritin 2990.3 ng/ml (8-388)
[2021-09-28] MEDS: ENOXAPARIN INJ 40 MG/0.4 ML SYR SQ SCH (09:15)
[2021-09-28] MEDS: AZITHROMYCIN 250 MG TAB PO SCH (09:15)
[2021-09-28] MEDS: DOCUSATE SODIUM/SENNA 50/8.6MG TAB PO SCH (09:16)
[2021-09-28] MEDS: cefTRIAXone SODIUM 2,000 MG in DEXTROSE 5% 50 ML IV SCH (09:16)
[2021-09-28] MEDS: guaiFENesin 600 MG TABCR PO SCH ×2 (09:16→22:17)
[2021-09-28] MEDS: dexAMETHasone 6 MG in SYRINGE 0 ML IV SCH (09:17)
[2021-09-28] MEDS: SODIUM CHLORIDE 0.9% 1000ML 1,000 ML IV SCH (09:26)
--- NOTE | 2021-09-28 18:18 | Hospitalist Progress Note ---
Date of Service September 28, 2021 Assessment & Plan (1) Pneumonia due to severe acute respiratory syndrome coronavirus 2 (S ARS-CoV-2): Plan: COVID-19 pneumonia with acute hypoxic respiratory failure Possible secondary bacterial pneumonia O2 sats less than 94% at the ER Superimposed bacterial infection --Currently on 4 L of oxygen via nasal cannula ESR, CRP improving --Continue Decadron day #2 Continued remdesivir day #2, continue to watch AST/ALT, currently mildly elevated Self proning, incentive spirometry, flutter valve encouraged Lovenox for DVT prophylaxis --Continue ceftriaxone plus azithromycin Follow-up blood cultures Recurrent syncopal events likely secondary to orthostasis given hypotension upon arrival at the ER. --Gentle IV fluids, BP improving DC IV fluids --No arrhythmia per telemetry monitoring past tobacco abuse DVT prophylaxis. Lovenox subcu Full code plan of care discussed with patient in detail and at length all questions answered he is understanding, agreeable, comfortable with the plan of care Admission and Anticipated Discharge Date Admission Date: September 26, 2021 Subjective Follow-up for COVID-19 pneumonia, acute hypoxic respiratory failure, etc. Seen resting in bed, comfortable, on 4 L of oxygen via nasal cannula States he continues to feel improved today compared to yesterday Less cough, no phlegm no chest pain, dyspnea, palpitations, dizziness No abdominal pain, nausea vomiting, appetite is great Denies any leg pain No other symptoms Review of Systems Review of Systems: all noted and negative except for above Physical Exam Physical Exam: General- oriented x 3, not in distress, speaks in sentences with no effort or accessory muscle use Eyes- anicteric Neck- no JVD Lungs-crackles at the bases, no wheezing, good air entry bilaterally Heart- normal rate, regular rhythm; no murmurs Abdomen- normal bowel sounds, nondistended, soft, nontender Extremities- no pretibial edema, no calf tenderness Neuro- alert, oriented x 3; no gross focal neurologic deficits Skin- warm & dry Results & Data Results & [facility] ([facility]) Vital Signs (Past 12 Hours) Vital Signs Temp Pulse Pulse Resp BP Pulse Ox 09/28/21 15:44 72 09/28/21 15:00 36.6 C 48 L 20 114/75 93 09/28/21 13:08 52 L 09/28/21 11:53 36.6 C 67 18 105/66 95 09/28/21 07:35 57 L 16 97 09/28/21 07:28 36.6 C 54 L 19 100/54 L 94 all noted and reviewed including below
[2021-09-28] MEDS: REMDESIVIR 100 MG in SODIUM CHLORIDE 0.9% 230 ML IV SCH (22:16)
[2021-09-28] MEDS ORDERED: CALCIUM CARBONATE 500 MG CHEWABLE TAB PO PRN (22:23)
[2021-09-28] MEDS ORDERED: CALCIUM CARBONATE 500 MG CHEWABLE TAB ONE (22:30)
[2021-09-28] MEDS: SODIUM CHLORIDE 0.9% 10ML FLUSH IV SCH (23:16)
[2021-09-29 06:06] LABS: Hematocrit (blood only) 45.2 % (42-52); Hemoglobin 15.2 g/dL (14.0-18.0); Mean Corpuscular Hemoglobin 31.7 pg (25-34); Mean Corpuscular Hgb Conc 33.6 g/dL (32-36); Mean Corpuscular Volume 94.4 fL (80-100); Mean Platelet Volume 10.6 fL (7.4-10.4); Platelet Count 214 K/uL (130-400); RDW Coefficient of Variation 12.6 % (11.5-14.5); RDW Standard Deviation 43.7 fL (36.4-46.3); Red Blood Count 4.79 M/uL (4.7-6.1); White Blood Count 10.66 K/uL (4.8-10.8)
[2021-09-29 06:30] LABS: Albumin Level 2.6 gm/dl (3.4-5.0); BUN Creatinine Ratio 18.8 (10-20); Calcium 8.7 mg/dl (8.5-10.1); Creatinine Clr Calc Pharmacy 198.7 ml/min; Est GFR (African American) 144.4 ml/min; Est GFR (Non-African American) 124.6 ml/min; Potassium 4.2 mmol/L (3.5-5.1)
[2021-09-29 06:32] LABS: Albumin Globulin Ratio 0.7 (0.9-2); Bilirubin,Total 0.4 mg/dl (0.2-1); Globulin 3.8 gm/dl (2.5-4.0); Total Protein 6.4 gm/dl (6.4-8.2)
[2021-09-29 06:39] LABS: Basophils # (auto) 0.06 K/uL (0-0.2); Basophils % (auto) 0.6 %; Eosinophils # (auto) 0.03 K/uL (0-0.5); Eosinophils % (auto) 0.3 %; Immature Granulocytes # (auto) 0.03 K/uL (0.00-0.02); Immature Granulocytes % (auto) 0.3 %; Lymphocytes # (auto) 3.79 K/uL (1.2-3.4); Lymphocytes % (auto) 35.6 %; Monocytes % (auto) 12.2 %; Neutrophils # (auto) 5.45 K/uL (1.4-6.5); RBC Morphology Unremarkable
[2021-09-29] MEDS: dexAMETHasone 6 MG in SYRINGE 0 ML IV SCH (07:55)
[2021-09-29] MEDS: AZITHROMYCIN 250 MG TAB PO SCH (07:55)
[2021-09-29] MEDS: ENOXAPARIN INJ 40 MG/0.4 ML SYR SQ SCH (07:56)
[2021-09-29] MEDS: guaiFENesin 600 MG TABCR PO SCH ×2 (07:56→21:11)
[2021-09-29] MEDS: DOCUSATE SODIUM/SENNA 50/8.6MG TAB PO SCH (07:57)
[2021-09-29] MEDS: cefTRIAXone SODIUM 2,000 MG in DEXTROSE 5% 50 ML IV SCH (09:05)
--- NOTE | 2021-09-29 13:13 | Hospitalist Progress Note ---
Date of Service September 29, 2021 Assessment & Plan (1) Pneumonia due to severe acute respiratory syndrome coronavirus 2 (S ARS-CoV-2): Plan: COVID-19 pneumonia with acute hypoxic respiratory failure Possible secondary bacterial pneumonia O2 sats less than 94% at the ER Superimposed bacterial infection --was on 3-4 L of oxygen via nasal cannula--> being weaned off oxygen, now on room air ESR, CRP improving --Continue Decadron day #3 Continued remdesivir day #3, continue to watch AST/ALT, improving Self proning, incentive spirometry, flutter valve encouraged Lovenox for DVT prophylaxis --Continue ceftriaxone plus azithromycin Blood cultures negative Two-step exercise test ordered Recurrent syncopal events likely secondary to orthostasis given hypotension upon arrival at the ER. --Gentle IV fluids given, BP improving DC IV fluids --No arrhythmia per telemetry monitoring past tobacco abuse DVT prophylaxis. Lovenox subcu Full code plan of care discussed with patient in detail and at length all questions answered he is understanding, agreeable, comfortable with the plan of care Admission and Anticipated Discharge Date Admission Date: September 26, 2021 Subjective Follow-up for COVID-19 pneumonia, acute hypoxic respiratory failure, etc. Resting in bed, comfortable, not in distress, off oxygen States he feels improved further today Breathing is okay No cough, fevers or chills, chest pain, dizziness No other symptoms Review of Systems Review of Systems: all noted and negative except for above Physical Exam Physical Exam: General- oriented x 3, not in distress, speaks in sentences with no effort or accessory muscle use Eyes- anicteric Neck- no JVD Lungs-mild crackles at the bases, no wheezing Good air entry bilaterally Heart- normal rate, regular rhythm; no murmurs Abdomen- normal bowel sounds, nondistended, soft, nontender Extremities- no pretibial edema, no calf tenderness Neuro- alert, oriented x 3; no gross focal neurologic deficits Skin- warm & dry Results & Data Results & Data ([facility]) Vital Signs (Past 12 Hours) Vital Signs Temp Pulse Pulse Resp BP Pulse Ox 09/29/21 12:10 36.6 C 61 18 110/73 90 09/29/21 08:15 50 L 09/29/21 08:00 36.5 C 57 L 18 124/81 95 09/29/21 03:00 36.7 C 60 20 100/65 93 all noted and reviewed including below
[2021-09-29] MEDS: REMDESIVIR 100 MG in SODIUM CHLORIDE 0.9% 230 ML IV SCH (21:11)
[2021-09-29] MEDS: SODIUM CHLORIDE 0.9% 10ML FLUSH IV SCH (22:23)
[2021-09-30] MEDS: dexAMETHasone 6 MG in SYRINGE 0 ML IV SCH (07:49)
[2021-09-30] MEDS: cefTRIAXone SODIUM 2,000 MG in DEXTROSE 5% 50 ML IV SCH (07:49)
[2021-09-30] MEDS: AZITHROMYCIN 250 MG TAB PO SCH (07:50)
[2021-09-30] MEDS: ENOXAPARIN INJ 40 MG/0.4 ML SYR SQ SCH (07:50)
[2021-09-30] MEDS: DOCUSATE SODIUM/SENNA 50/8.6MG TAB PO SCH (07:51)
[2021-09-30] MEDS: guaiFENesin 600 MG TABCR PO SCH (07:51)
[2021-09-30 09:20] LABS: Albumin Level 2.7 gm/dl (3.4-5.0); BUN Creatinine Ratio 15.9 (10-20); Calcium 8.8 mg/dl (8.5-10.1); Est GFR (African American) 141.1 ml/min; Est GFR (Non-African American) 121.7 ml/min; Potassium 3.8 mmol/L (3.5-5.1)
[2021-09-30 09:25] LABS: Albumin Globulin Ratio 0.7 (0.9-2); Bilirubin,Total 0.5 mg/dl (0.2-1); C Reactive Protein 2.27 mg/dl (0-0.29); Ferritin 1498.8 ng/ml (8-388); Globulin 4.1 gm/dl (2.5-4.0); Total Protein 6.8 gm/dl (6.4-8.2)
[2021-09-30] MEDS ORDERED: CEFDINIR 300 MG CAP PO SCH ×2 (11:00→21:00)
--- NOTE | 2021-09-30 11:35 | Hospitalist Progress Note ---
Date of Service September 30, 2021 Assessment & Plan (1) Pneumonia due to severe acute respiratory syndrome coronavirus 2 (S ARS-CoV-2): Plan: COVID-19 pneumonia with acute hypoxic respiratory failure Possible secondary bacterial pneumonia O2 sats less than 94% at the ER Superimposed bacterial infection --was on 3-4 L of oxygen via nasal cannula--> being weaned off oxygen, on room air CRP slightly increased --Received 4 days of Decadron, 3 days of remdesivir Mild elevation of AST and ALT improving Self proning, incentive spirometry, flutter valve encouraged Lovenox for DVT prophylaxis --Also given 5-day course of ceftriaxone plus azithromycin Blood cultures negative Two-step exercise test ordered: Patient requiring 6 L of oxygen with ambulation, no oxygen supplementation at rest -- Patient unfortunately decided to sign out AGAINST MEDICAL ADVICE Discharge medications prescribed: Decadron 6 mg p.o. daily x5 more days to complete 10-day course Cefdinir 300 mg p.o. twice daily x5 days Levalbuterol inhaler as needed Follow-up with primary care physician in 1 week Instructions were also provided regarding Covid isolation Please repeat basic metabolic profile and liver function tests on PCP follow-up as patient has received remdesivir Recurrent syncopal events likely secondary to orthostasis given hypotension upon arrival at the ER. --Gentle IV fluids given, BP improved --No arrhythmia per telemetry monitoring --Further evaluation management as an outpatient past tobacco abuse DVT prophylaxis. Lovenox subcu given Full code plan of care discussed with patient in detail and at length all questions answered he is understanding, agreeable, comfortable with the plan of care Admission and Anticipated Discharge Date Admission Date: September 26, 2021 Subjective Follow-up for acute hypoxic respiratory failure, COVID-19 pneumonia, etc. Seen resting in bed, off oxygen, comfortable, not in distress States he feels much better overall Ambulates to the bathroom back to his bed with no problems States he feels fine overall and very adamant of being discharged today Denies chest pain, palpitations, dizziness, abdominal pain, nausea vomiting Appetite is good No other symptoms Explained to patient in detail that 1-2 more days of observation at least is required to ensure that his COVID-19 pneumonia is continuing to improve Also recommended to continue and complete remdesivir course to prevent disease progression Patient still adamant on being discharged today as he wants to see his children Explained risks of signing out AMA including worsening respiratory status, shortness of breath, low oxygen, and organ damage, even Patient verbalized understanding and agreement Patient still preferred to sign out AMA despite explanation Discussed discharge medications including Decadron, antibiotics, continued use of flutter valve incentive spirometry Explained things to watch out for including shortness of breath, cough, fevers or chills and encourage patient to return to the ER immediately if with such symptoms Portable oxygen coordinated with nurse case managementrecords analysis manager of Systems Review of Systems: all noted and negative except for above Physical Exam Physical Exam: General- oriented x 3, not in distress, speaks in sentences with no effort or accessory muscle use Eyes- anicteric Neck- no JVD Lungs-mild crackles at the bases, no wheezing Heart- normal rate, regular rhythm; no murmurs Abdomen- normal bowel sounds, nondistended, soft, nontender Extremities- no pretibial edema, no calf tenderness Neuro- alert, oriented x 3; no gross focal neurologic deficits Skin- warm & dry Results & Data Results & Data ([facility]) Vital Signs (Past 12 Hours) Vital Signs Temp Pulse Pulse Resp BP BP Pulse Ox 09/30/21 11:06 36.6 C 83 17 114/68 106/66 92 09/30/21 07:45 71 09/30/21 07:23 36.6 C 83 17 114/68 92 09/30/21 04:00 37.1 C 77 18 100/58 L 92 09/30/21 00:15 67 all noted and reviewed including below
--- NOTE | 2021-09-30 11:36 | Discharge Summary ---
Date of Service September 30, 2021 Admission HPI Per Admitting Provider History obtained from patient and records. Medical history significant for asthma, GERD, past tobacco abuse. 2 weeks ago, patient noted dizziness, lightheadedness symptoms at work. No chest pain, no S OB. Patient discharged from the ER after unremarkable work-up. Patient prescribed meclizine for possible vertigo. Patient seen at PCPs office 10 days ago on follow-up visit Patient recalled 2 unwitnessed syncopal events prior to ER visit a few days ago. Patient with fever, nausea, cough symptoms at time of PCP visit. Possible sick COVID-19 family contacts. Patient has not received COVID-19 vaccination. COVID-19 test done at PCPs office was positive. Recurrent syncopal events at home prompted return to ER last week. No incontinence, or weakness seizure episodes, or tongue biting. Poor appetite. Patient discharged from ER with negative work-up. Worsening cough symptoms with shortness of breath. Patient coughing up green sputum. Pleuritic chest pain. No wheezing as per patient. Patient returned to ER for evaluation. Initial SBP at the ER 90s. Lowest O2 sats at the ER 91 on room air. Oral Decadron given at the ER. 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 Admission Exam (Per Admitting) Constitutional GENERAL: Uncomfortable, obese, lying semiprone on the right lateral decubitus position, minimal respiratory distress SKIN: Normal color, warm HEENT: [place] palpebral conjunctivae, no ptosis, dry buccal mucosa NECK : Supple, short neck, no tenderness CHEST : Decreased breath sounds, no tenderness HEART : RRR, no obvious murmurs ABDOMEN: Some distention, nontender EXTREMITIES : No LE swelling/tenderness, no other conspicuous deformities noted NEUROLOGIC : Coherent, no facial asymmetry, no other gross focality Discharge Data Consultations 09/26/21 18:42 ED Decision to Admit Stat Procedures Performed CT ANGIOGRAPHY OF THE CHEST, PULMONARY EMBOLUS PROTOCOL CLINICAL HISTORY: Shortness of breath. Evaluate for pulmonary embolus. COMPARISON STUDY: Chest radiograph September 20, 2021 and September 26, 2021. TECHNIQUE: Following IV administration of 116 mL of Optiray, helical axial images of the chest were obtained utilizing the pulmonary embolus protocol. Maximal intensity projections and sagittal and coronal reformats were viewed on an independent 3D workstation. IV contrast was administered without complication. Automated exposure control was utilized for the study. A dose lowering technique was utilized adhering to the principles of ALARA. CT DOSE: 532.04 mGycm FINDINGS: This exam is significantly compromised by suboptimal opacification. No pulmonary emboli are identified although sensitivity is significantly diminished on this exam. There is no thoracic aortic dissection. Size of the heart is normal. There is no pericardial effusion. Mildly enlarged mediastinal and bilateral hilar lymph nodes are noted. Index subcarinal lymph node measures 1.4 cm short axis diameter. Central airways are patent. No pneumothorax or pleural effusion is noted. Extensive bilateral lower lobe predominant airspace opacities are noted. No acute fracture or suspicious lesion is identified within visualized portions of the bony thorax. There is possible hepatic steatosis. IMPRESSION: 1. Exam significantly compromised by suboptimal opacification. No pulmonary emboli identified although sensitivity significantly diminished on this exam. A repeat PE protocol CT might be considered. 2. Extensive multifocal airspace opacities within the lower lungs consistent with viral pneumonia. 3. Mildly enlarged mediastinal and bilateral hilar lymph nodes which are likely reactive. ACT 112: Negative or not required by law. Electronically signed by: Kurtis Cohen M.D. 09/26/2021 5:57 PM Hospital Course (1) Pneumonia due to severe acute respiratory syndrome coronavirus 2 (SARS-CoV-2): COVID-19 pneumonia with acute hypoxic respiratory failure Possible secondary bacterial pneumonia O2 sats less than 94% at the ER Superimposed bacterial infection --was on 3-4 L of oxygen via nasal cannula--> being weaned off oxygen, now on room air ESR, CRP improving --Continue Decadron day #3 Continued remdesivir day #3, continue to watch AST/ALT, improving Self proning, incentive spirometry, flutter valve encouraged Lovenox for DVT prophylaxis --Continue ceftriaxone plus azithromycin Blood cultures negative Two-step exercise test ordered Recurrent syncopal events likely secondary to orthostasis given hypotension upon arrival at the ER. --Gentle IV fluids given, BP improving DC IV fluids --No arrhythmia per telemetry monitoring past tobacco abuse DVT prophylaxis. Lovenox subcu Full code plan of care discussed with patient in detail and at length all questions answered he is understanding, agreeable, comfortable with the plan of care
== END 2021-09-30 11:21 | disposition left against medical advice (07) | DRG 177 ==
LOC: ED 12:50 → 2W 20:02